=== PATIENT | female | born 1980 | race Caucasian/White ===

== ENCOUNTER 2017-06-14 00:04 | Emergency (ER) | payer SELFPAY ==
[2017-06-14] MEDS: NALOXONE 2 MG SYG IV (04:45)
[2017-06-14] MEDS: SOD CHLORIDE 0.9% 1,000 ML IV (04:45)
== END 2017-06-14 13:10 | disposition home or self-care (01) ==
LOC: E/R 00:04
DX: T40.1X1A Poisoning by heroin, accidental (unintentional), initial encounter (principal); R41.82 Altered mental status, unspecified
CPT/HCPCS: 70450; 71045; 96374; 99285-25